=== PATIENT | male | born 1985 | race Caucasian/White ===

== ENCOUNTER 2016-11-16 17:00 | Emergency (ER) ==
[2016-11-16 17:31] VITALS: BP 119/73
[2016-11-16] MEDS ORDERED: TORADOL IM ONE (17:50)
[2016-11-16] MEDS ORDERED: CLINDAMYCIN IM ONE (17:50)
[2016-11-16] MEDS ORDERED: DECADRON IM ONE (17:50)
--- NOTE | 2016-11-16 17:54 | PROVIDER DOCUMENTATION ---
HPI-General Adult <Brittney Spear - Last Filed: 11/16/16 17:52> - General Source: patient - History of Present Illness -Gen Adult Nature of Presenting Problems: Pt is a 31 yom who presents to ER wiht 2 complaints. The first complaint is on L middle finger, over the pip, where pt reports he removed a splinter x1 week ago and now complains of drainage. Pt's L hand has full ROM and no other symptoms noted. Pt's second complaint is a swollen L submandibular lymph node x2 weeks. Pt reports he was hospitalized before for "bilateral swollen lymph nodes the size of baseballs." Pt reports that he was suppose to see an ENT, but never did. On exam, pt does have moderate swollen bilateral anterior cervical lymphadenopathy. Pt does not complain of difficulty breathing or trouble swallowing. Location of Pain/Injury: reports: upper extremity (L hand middle finger; L submandibular lymph node) Pain Radiation: reports: no radiation Quality of Pain: reports: aching, pressure Severity: reports: moderate Onset/Duration: reports: 1 week ago, other (x2 weeks) Timing: reports: still present Associated Symptoms: reports: EENT symptoms (sore throat). denies: back/neck pain, chest pain, constipation, cough, diaphoresis, diarrhea, dizziness, fatigue , fever/chills, genitourinary problems, headaches, muscle aches, nausea, rash, shortness of breath, pain with inspiration, syncope, vomiting, weakness, trouble walking Similar Symptoms Previously?: Yes (lymphadenopathy) <Shay Liao - Last Filed: 11/16/16 18:13> - General Chief Complaint: Extremity Pain Stated Complaint: neck swelling,left middle finger injury Time Seen by Provider: 11/16/16 17:37 Allergies/Adverse Reactions: Patient Allergies Allergy/AdvReac Type Severity Reaction Status Date / Time No Known Allergies Allergy Verified 08/28/16 19:03 Home Medications: Home Medication List Medication Instructions Recorded Confirmed Last Taken Type Chlorhexidine Gluconate 10 ml MM BID #1 mouthwash 08/28/16 Unknown Rx Clindamycin [Cleocin] 150 mg PO Q6HR #30 capsule 08/28/16 Unknown Rx Tramadol [Ultram] 50 mg PO Q8HR #7 tablet 08/28/16 Unknown Rx Clindamycin [Cleocin] 150 mg PO Q6HR #30 capsule 11/16/16 Unknown Rx Mupirocin Ointment [Bactroban 1 applicatn TOP TID #1 tube 11/16/16 Unknown Rx Ointment] Prednisone [Deltasone] 20 mg PO DIRECTED #12 tablet 11/16/16 Unknown Rx Review of Systems - Adult - REVIEW OF SYSTEMS - ADULT Constitutional: denies: chills, fever, fatique, night sweats, weight gain, weight loss Eyes: reports: no symptoms reported Ears, Nose, Mouth & Throat: reports: throat pain. denies: ear pain, sinus problem, nose pain, mouth/dental pain, mouth swelling, hoarseness, throat swelling Cardiovascular: reports: no symptoms reported Respiratory: denies: chronic cough, cough, dyspnea on exertion, excessive sputum production, hemoptysis, pleurisy, shortness of breath, wheezing Gastrointestinal: denies: abdominal pain, constipation, diarrhea, difficulty swallowing, nausea, poor appetite, vomiting Genitourinary: reports: no symptoms reported Musculoskeletal: reports: no symptoms reported Integumentary: reports: no symptoms reported Neurological: reports: no symptoms reported Psychiatric: reports: no symptoms reported Endocrine: reports: no symptoms reported Hematologic/Lymphatic: reports: no symptoms reported Allergic/Immunologic: reports: no symptoms reported All Other Systems: Reviewed and Negative <Shay Liao - Last Filed: 11/16/16 18:13> Past History - Adult - PAST MEDICAL HISTORY-ADULT Major Childhood Illnesses: reports: denies history Cardiovascular: reports: denies history Respiratory: reports: denies history Gastrointestinal: reports: denies history Obstetrical/Gynecological: reports: denies history Genitourinary: reports: denies history Musculoskeletal: reports: denies history Neurological: reports: denies history Psychiatric: reports: denies history Endocrine/Immune: reports: denies history Other Conditions: reports: denies history - PRIOR SURGERIES/PROCEDURES Surgical/Procedure History: reports: reviewed, not pertinent - PRIOR HOSPITALIZATIONS Prior Hospitalizations: reports: for other non-related - IMMUNIZATION STATUS Childhood Immunizations: See Nurse Assessment Flu Vaccine: See Nurse Assessment - FAMILY HISTORY Family History: reviewed, not pertinent <Brittney Spear - Last Filed: 11/16/16 17:52> - PAST MEDICAL HISTORY-ADULT Review of Records: reports: Nursing Assessment Review, Medications Reviewed - IMMUNIZATION STATUS Childhood Immunizations: See Nurse Assessment Flu Vaccine: See Nurse Assessment <Shay Liao - Last Filed: 11/16/16 18:13> Physical Exam-General - PHYSICAL EXAM-ADULT Initial Vital Signs Reviewed: Yes - CONSTITUTIONAL General Appearance: appears well, alert, mild distress. negative: no apparent distress - HEAD, EARS, NOSE, MOUTH & THROAT HENMT: moist mucous membranes, normal ENT inspection, TMs normal, pharyngeal erythema, other (white lesions on uvula and tongue). negative: normocephalic/ atraumatic, pharynx normal, tonsillar exudate (swollen bilateral tonsils with white lesions) - NECK Neck: non-tender, full range of motion, supple, lymphadenopathy. negative: C- spine tenderness, limited range of motion - RESPIRATORY Respiratory: chest non-tender, lungs clear, normal breath sounds, no pleuratic chest pain, no respiratory distress, no accessory muscle use. negative: respiratory distress, decreased breath sounds, accessory muscle use, wheezing - CARDIOVASCULAR Cardiovascular: normal peripheral pulses, regular rate, rhythm. negative: bradycardia, tachycardia - GASTROINTESTINAL (ABDOMEN) Abdominal Exam: normal bowel sounds, non tender, soft. negative: distended, tenderness, mass - LYMPHATIC Lymphatic: cervical node tenderness. negative: no adenopathy - MUSCULOSKELETAL Back Exam: normal inspection, no CVA tenderness, no vertebral tenderness. negative: CVA tenderness, decreased range of motion - NEUROLOGIC Neurologic: grossly normal, no motor/sensory deficits. negative: facial droop, focal weakness, motor weakness, sensory deficit - PSYCHIATRIC Psych/Mental Status: normal mood/affect, normal thought content, normal thought process, oriented x 3 <Shay Liao - Last Filed: 11/16/16 18:13> Progress - PLAN OF CARE/RESULTS Progress/Plan/Lab Results: Vital Signs - 24 hr 11/16/16 17:26 Temperature 98.7 F Pulse Rate 82 Respiratory 16 Rate Blood Pressure 119/73 O2 Sat by Pulse 98 Oximetry Orders Category Date Time Status Clindamycin Med 11/16/16 17:50 Discontinued 600 mg IM NOW ONE Dexamethasone [Decadron] Med 11/16/16 17:50 Discontinued 10 mg IM NOW ONE Ketorolac [Toradol] Med 11/16/16 17:50 Discontinued 30 mg IM NOW ONE <Shay Liao - Last Filed: 11/16/16 18:13> Departure - Departure Time of Disposition Order: 17:52 Certified Medical Emergency: Emergent <Brittney Spear - Last Filed: 11/16/16 17:52> - Departure Time of Disposition Order: 18:13 Certified Medical Emergency: Emergent <Shay Liao - Last Filed: 11/16/16 18:13> - Departure DIAGNOSIS: Lesion of tonsil, Lymphadenopathy of head and neck, Cellulitis and abscess of finger, unspecified Disposition: HOME 01 Condition: Stable Additional Instructions: Follow up with Dr. Escobedo, ENT ED Follow Up Instructions: You have been treated by a care provider in the Emergency Department. These instructions are being provided to you so you can have an understanding of how to care for yourself upon discharge. Upon discharge from the Emergency Department, you are responsible for making arrangements for follow-up care by a physician of your choice. Take all prescribed medications as directed. Return to the Emergency Department immediately for any new or worsening symptoms. You may call the Physician Referral phone number at [phone] to obtain a list of Physicians who are taking new patients. Prescriptions: Mupirocin Ointment [Bactroban Ointment] 1 applicatn TOP TID #1 tube Clindamycin [Cleocin] 150 mg PO Q6HR #30 capsule Prednisone [Deltasone] 20 mg PO DIRECTED #12 tablet Referrals: None,PCP [Primary Care Provider] - Jazz Escobedo MD [STAFF PHYSICIAN] - Attestation - Scribe Verification/Attestation Scribe:: Shay Liao Acting as Scribe for:: Brittney Spear Scribe documention review:: This chart was documented by a scribe and accurately reflects the service the provider performed and the decisions made by the provider. <Shay Liao - Last Filed: 11/16/16 18:13> Physician Attestation
== END 2016-11-16 18:23 | disposition home or self-care (01) ==
LOC: ED 17:00
DX: L02.512 Cutaneous abscess of left hand (principal); L03.012 Cellulitis of left finger; J35.9 Chronic disease of tonsils and adenoids, unspecified; M79.645 Pain in left finger(s); R59.0 Localized enlarged lymph nodes; J02.9 Acute pharyngitis, unspecified; R22.1 Localized swelling, mass and lump, neck
CPT/HCPCS: J1885; S0077